=== PATIENT | male | born 1950 | race Caucasian/White ===

== ENCOUNTER 2024-09-29 14:22 | Inpatient (IN) | payer OTHER ==
[2024-09-29 15:30] LABS: HEMATOCRIT 40.1 % (40.1-51.0); HEMOGLOBIN 12.9 g/dL (13.7-17.5); MCHC 32.2 g/dl (32.3-36.5); MEAN CELL VOLUME 66.7 fl (79.0-92.2); MEAN PLT VOLUME 10.6 fl (9.4-12.4); PLATELET COUNT 354 x10^3/uL (163-337); RDW 15.8 % (12.2-16.6)
[2024-09-29] MEDS ORDERED: VANCOMYCIN HCL 1,500 MG in DEXTROSE 5%-WATER - 500 ML IVPB ONE (15:30)
[2024-09-29 15:37] LABS: VENOUS BASE EXCESS -0.5 mmol/L (-2-2); VENOUS PCO2 36.4 mmHg (38-52); VENOUS PH 7.427 (7.310-7.410)
[2024-09-29 15:39] LABS: INR 1.27 (0.83-1.09); PROTHROMBIN TIME (PATIENT) 13.8 SEC (9.7-13.0)
[2024-09-29] MEDS: LACTATED RINGERS SOLUTION 1000 ML INFUS.BAG IV ONE ×2 (15:40→17:03)
[2024-09-29 15:50] LABS: POTASSIUM 4.7 mmol/L (3.5-5.1)
[2024-09-29 15:52] LABS: CALCIUM 10.2 mg/dL (8.5-10.1)
[2024-09-29 15:54] LABS: ALBUMIN 3.3 g/dl (3.4-5.0); BLOOD UREA NITROGEN 34.8 mg/dL (7-18)
[2024-09-29 15:57] LABS: CREATININE 1.1 mg/dL (0.55-1.3)
[2024-09-29 15:58] LABS: TOT PROT 7.5 g/dl (6.4-8.2)
[2024-09-29] MEDS ORDERED: NOREPINEPHRINE BITARTRATE 16,000 MCG in SODIUM CHLORIDE 484 ML IV SCH (16:00)
[2024-09-29] MEDS ORDERED: PIPERACILLIN/TAZOB 4.5 GM 4.5 GM/100 ML BAG IVPB ONE (16:02)
[2024-09-29] MEDS ORDERED: ACETAMINOPHEN INJECTION 100 ML ONE (16:15)
[2024-09-29] MEDS: PIPERACILLIN/TAZOB 4.5 GM 4.5 GM in DEXTROSE 5%-WATER 100 ML IVPB ONE (16:34)
[2024-09-29] MEDS: ACETAMINOPHEN 1000 MG/100 ML BAG IVPB ONE (16:34)
[2024-09-29 16:41] LABS: LACTIC ACID 3.8 mmol/L (0.4-2.0)
[2024-09-29] MEDS ORDERED: AZITHROMYCIN IVPB 500 MG/250 ML BAG IVPB ONE (16:49)
[2024-09-29] MEDS: AZITHROMYCIN IVPB 500 MG in DEXTROSE 5%-WATER - 250 ML IVPB ONE (17:03)
[2024-09-29] MEDS: NOREPINEPHRINE BITARTRATE 4,000 MCG in DEXTROSE 5%-WATER - 496 ML IV SCH (17:27)
[2024-09-29 17:29] LABS: URINE APPEARANCE TURBID; URINE BILIRUBIN SMALL (NEGATIVE); URINE COLOR ORANGE; URINE GLUCOSE (UA) NEGATIVE (NEGATIVE); URINE KETONE NEGATIVE (NEGATIVE); URINE LEUK ESTERASE 4+ (NEGATIVE); URINE NITRITE POSITIVE (NEGATIVE); URINE PROTEIN 300 (NEGATIVE); URINE UROBILINOGEN 0.2 mg/dL (0.2-1.0)
[2024-09-29 17:30] LABS: EPI CELLS 338.5 /uL (0-25.1); HYALINE CASTS 419.4 /uL (0-3.1); URINE RBC 4559.5 /uL (0-23.9)
[2024-09-29] MEDS: VANCOMYCIN HCL IN 5 % DEXTROSE 1,500 MG/300 ML BAG IVPB ONE (18:04)
[2024-09-29 19:05] LABS: LACTIC ACID 4.6 mmol/L (0.4-2.0)
[2024-09-29] MEDS: LACTATED RINGERS SOLUTION 1,000 ML/1,000 ML INFUS.BAG IV STA (21:24)
[2024-09-29] MEDS: HYDROCORTISONE SOD SUCCINATE 100 MG/2 ML VIAL IVPB SCH (21:24)
[2024-09-29] MEDS: ACETAMINOPHEN 1000 MG/100 ML BAG IVPB PRN (21:25)
[2024-09-29] MEDS: NOREPINEPHRINE BITARTRATE/D5W 8 MG/250 ML BAG IVPB SCH (21:26)
[2024-09-29] MEDS: VASopressin 40 UNITS/100 ML BAG IV SCH (21:47)
[2024-09-29] MEDS: MUPIROCIN 2% TOPICAL OINTMENT FOR DECOLONIZATION NS SCH (22:15)
[2024-09-29] MEDS: CHLORHEXIDINE GLUCONATE 4% CLEANSER FOR DECOLONIZATION TP SCH (22:15)
[2024-09-30] MEDS ORDERED: PIPERACILLIN/TAZOB 4.5 GM 4.5 GM in DEXTROSE 5%-WATER 100 ML IVPB SCH
[2024-09-30] MEDS: PIPERACILLIN/TAZOB 4.5 GM 4.5 GM/100 ML BAG IVPB SCH (00:21)
[2024-09-30 07:09] LABS: HEMOGLOBIN 10.5 g/dL (13.7-17.5); MEAN PLT VOLUME 11.2 fl (9.4-12.4)
[2024-09-30 07:11] LABS: HEMATOCRIT 32.2 % (40.1-51.0); MCHC 32.6 g/dl (32.3-36.5); MEAN CELL VOLUME 67.2 fl (79.0-92.2); PLATELET COUNT 256 x10^3/uL (163-337); RDW 15.4 % (12.2-16.6)
[2024-09-30 07:18] LABS: POTASSIUM 3.6 mmol/L (3.5-5.1)
[2024-09-30 07:32] LABS: CALCIUM 9.3 mg/dL (8.5-10.1)
[2024-09-30 07:33] LABS: BLOOD UREA NITROGEN 28.7 mg/dL (7-18)
[2024-09-30 07:36] LABS: CREATININE 0.5 mg/dL (0.55-1.3)
[2024-09-30 07:37] LABS: PHOSPHOROUS 4.2 mg/dL (2.5-4.9)
[2024-09-30 07:41] LABS: ALBUMIN 2.6 g/dl (3.4-5.0); TOT PROT 6.1 g/dl (6.4-8.2)
[2024-09-30] MEDS ORDERED: VANCOMYCIN 750 MG in DEXTROSE 5%-WATER - 150 ML IVPB SCH (08:00)
[2024-09-30] MEDS: VANCOMYCIN/WATER FOR INJ (PEG) 750 MG/150 ML BAG IVPB SCH (08:51)
[2024-09-30] MEDS: levETIRAcetam 500 MG/5 ML INJECTION VIAL IVPB SCH (09:04)
[2024-09-30] MEDS: PANTOPRAZOLE SODIUM 40 MG VIAL IVPUSH SCH (09:07)
[2024-09-30] MEDS: ENOXAPARIN NA (PORCINE) 30 MG/0.3 ML DISP.SYRIN SQ SCH (09:07)
[2024-09-30] MEDS: SODIUM CHLORIDE 1,000 ML IV STA (09:07)
[2024-09-30] MEDS ORDERED: VALPROATE SODIUM 500 MG/5 ML VIAL IVPB SCH (10:00)
[2024-09-30] MEDS: VALPROATE SODIUM INJECTION 125 MG in SODIUM CHLORIDE 100 ML IVPB SCH (10:26)
[2024-09-30] MEDS ORDERED: MIDAZOLAM HCL 2 MG/2 ML SINGLE DOSE VIAL ONE (11:56)
[2024-09-30] MEDS: MIDAZOLAM HCL 2 MG/2 ML SINGLE DOSE VIAL IVPUSH ONE (13:00)
[2024-09-30] MEDS: PIPERACILLIN/TAZOB 3.375 GM 3.375 GM in DEXTROSE 5%-WATER - 50 ML IVPB SCH (17:05)
[2024-09-30] MEDS: OLANZapine 2.5 MG TABLET PO SCH (21:52)
[2024-09-30] MEDS ORDERED: GLYCOPYRROLATE 1 MG TABLET PO SCH (22:00)
[2024-09-30] MEDS: ALBUTEROL SO4 0.083% IH SOL 2.5 MG/3 ML VIAL.NEB. NEB SCH (23:21)
[2024-09-30] MEDS: ACETAMINOPHEN 325 MG TABLET (FP) PO PRN (23:24)
[2024-10-01 06:54] LABS: HEMOGLOBIN 8.6 g/dL (13.7-17.5)
[2024-10-01 06:55] LABS: HEMATOCRIT 27.2 % (40.1-51.0); MCHC 31.6 g/dl (32.3-36.5); MEAN PLT VOLUME 11.4 fl (9.4-12.4); PLATELET COUNT 200 x10^3/uL (163-337); RDW 15.6 % (12.2-16.6)
[2024-10-01 07:21] LABS: POTASSIUM 3.4 mmol/L (3.5-5.1)
[2024-10-01 07:24] LABS: CALCIUM 9.4 mg/dL (8.5-10.1)
[2024-10-01 07:25] LABS: ALBUMIN 2.5 g/dl (3.4-5.0); MAGNESIUM 1.8 mg/dL (1.8-2.4)
[2024-10-01 07:28] LABS: CREATININE 0.4 mg/dL (0.55-1.3)
[2024-10-01 07:29] LABS: BILIRUBIN,TOTAL 0.9 mg/dL (0.2-1); TOT PROT 5.8 g/dl (6.4-8.2)
[2024-10-01] MEDS: POTASSIUM CHLORIDE ORAL LIQUID 20 MEQ/15 ML PO ONE (09:12)
[2024-10-01] MEDS: MAGNESIUM 1GM/D5W - 1 GM/100 ML IVPB IVPB ONE (09:12)
[2024-10-01] MEDS: SENNOSIDES 8.6MG TABLET (FP) PO SCH (09:13)
[2024-10-01] MEDS: NAPH,MB-DB/K PH,MBDB POWDER PACKET PO SCH (09:13)
[2024-10-01] MEDS: ALBUTEROL SO4 0.083% IH SOL 2.5 MG/3 ML VIAL.NEB. NEB SCH (12:00)
[2024-10-02 06:41] LABS: HEMATOCRIT 27.8 % (40.1-51.0); HEMOGLOBIN 8.7 g/dL (13.7-17.5); MCHC 31.3 g/dl (32.3-36.5); MEAN CELL VOLUME 68.3 fl (79.0-92.2); MEAN PLT VOLUME 11.1 fl (9.4-12.4); PLATELET COUNT 190 x10^3/uL (163-337); RDW 15.8 % (12.2-16.6)
[2024-10-02] MEDS: MULTIVIT-MINERALS ORAL LIQUID PO SCH (09:15)
[2024-10-02] MEDS: THIAMINE HCL 200 MG/2 ML VIAL IVPB SCH (09:19)
[2024-10-02 09:42] LABS: CHLORIDE 110 mmol/L (98-107); SODIUM 145 mmol/L (136-145)
[2024-10-02 09:45] LABS: BLOOD UREA NITROGEN 25.9 mg/dL (7-18); CO2 30 mmol/L (21-32); GLUCOSE,RANDOM 86 mg/dL (74-106); MAGNESIUM 1.9 mg/dL (1.8-2.4)
[2024-10-02 09:48] LABS: CREATININE 0.3 mg/dL (0.55-1.3); PHOSPHOROUS 1.5 mg/dL (2.5-4.9); SGOT/AST 37 U/L (15-37); SGPT/ALT 26 U/L (13-61)
[2024-10-02 09:50] LABS: BILIRUBIN,TOTAL 0.7 mg/dL (0.2-1); TOT PROT 5.7 g/dl (6.4-8.2)
[2024-10-02 09:51] LABS: ALK PHOS 67 U/L (45-117)
[2024-10-02 09:53] LABS: ALBUMIN 2.4 g/dl (3.4-5.0); ANION GAP 5 mmol/L (4-13); POTASSIUM 2.9 mmol/L (3.5-5.1)
[2024-10-02] MEDS: KCL 10 MEQ IVPB 10 MEQ/100 ML INFUS.BAG IVPB SCH (11:00)
[2024-10-02] MEDS: POTASSIUM PHOSPHATE IVPB ONE (12:12)
[2024-10-02] MEDS: SODIUM CHLORIDE IVPB ONE (12:12)
[2024-10-02] MEDS: BISACODYL 5 MG TABLET.DR (FP) PO ONE (15:37)
[2024-10-03] MEDS: hydrALAZINE HCL 20 MG/ML VIAL IVPUSH ONE (05:59)
[2024-10-03 07:16] LABS: ABSOLUTE IMMATURE GRANULOCYTES 0.09 x10^3/uL (0.0-0.031); BASOPHILS # 0.01 x10^3/uL (0.01-0.08); EOSINOPHIL % 0.1 % (0.8-7.0); EOSINOPHILS # 0.01 x10^3/uL (0.04-0.54); HEMATOCRIT 28.3 % (40.1-51.0); HEMOGLOBIN 8.7 g/dL (13.7-17.5); MCHC 30.7 g/dl (32.3-36.5); MEAN PLT VOLUME 11.3 fl (9.4-12.4); MONOCYTE % 5.5 % (5.3-12.2); PLATELET COUNT 188 x10^3/uL (163-337); RDW 15.7 % (12.2-16.6)
[2024-10-03 07:31] LABS: POTASSIUM 3.6 mmol/L (3.5-5.1)
[2024-10-03 07:36] LABS: ALBUMIN 2.5 g/dl (3.4-5.0); BLOOD UREA NITROGEN 19.6 mg/dL (7-18); CALCIUM 9.3 mg/dL (8.5-10.1); MAGNESIUM 1.8 mg/dL (1.8-2.4)
[2024-10-03 07:40] LABS: CREATININE 0.3 mg/dL (0.55-1.3)
[2024-10-03 07:41] LABS: BILIRUBIN,TOTAL 0.6 mg/dL (0.2-1)
[2024-10-03] MEDS ORDERED: DEXTROSE 50%-WATER - 25 GM/50 ML VIAL IVPUSH PRN ×2 (08:20→14:05)
[2024-10-03] MEDS: DEXTROSE 5%-0.45% SALINE 1,000 ML IV SCH ×2 (09:07→17:54)
[2024-10-03] MEDS ORDERED: HYDROCORTISONE SOD SUCCINATE 100 MG/2 ML VIAL IVPB SCH (10:00)
[2024-10-03] MEDS ORDERED: ACETAMINOPHEN 325 MG TABLET (FP) PO PRN (14:05)
[2024-10-03] MEDS: VALPROATE SODIUM INJECTION 125 MG in SODIUM CHLORIDE 100 ML IVPB SCH (15:40)
[2024-10-03 15:51] VITALS: BMI 15.3
[2024-10-03] MEDS: ALBUTEROL SO4 0.083% IH SOL 2.5 MG/3 ML VIAL.NEB. NEB SCH (16:00)
[2024-10-03] MEDS: PIPERACILLIN/TAZOB 3.375 GM 3.375 GM in DEXTROSE 5%-WATER - 50 ML IVPB SCH (17:54)
[2024-10-03] MEDS: levETIRAcetam 500 MG/5 ML INJECTION VIAL IVPB SCH (21:14)
[2024-10-03] MEDS ORDERED: MUPIROCIN 2% TOPICAL OINTMENT FOR DECOLONIZATION NS SCH (22:00)
[2024-10-03] MEDS ORDERED: CHLORHEXIDINE GLUCONATE 4% CLEANSER FOR DECOLONIZATION TP SCH (22:00)
[2024-10-03] MEDS ORDERED: DEXTROSE 50%-WATER 25 GM/50 ML DISP.SYRIN IVPUSH PRN (23:58)
[2024-10-04] MEDS: OLANZapine 2.5 MG TABLET PO SCH (01:27)
[2024-10-04 07:03] LABS: ABSOLUTE IMMATURE GRANULOCYTES 0.04 x10^3/uL (0.0-0.031); BASOPHILS # 0.01 x10^3/uL (0.01-0.08); EOSINOPHIL % 0.5 % (0.8-7.0); EOSINOPHILS # 0.04 x10^3/uL (0.04-0.54); HEMATOCRIT 28.6 % (40.1-51.0); MCHC 31.5 g/dl (32.3-36.5); MEAN CELL VOLUME 67.5 fl (79.0-92.2); MONOCYTE # 0.69 x10^3/uL (0.30-0.82); MONOCYTE % 7.9 % (5.3-12.2); PLATELET COUNT 200 x10^3/uL (163-337); RDW 15.4 % (12.2-16.6)
[2024-10-04 07:23] LABS: POTASSIUM 3.3 mmol/L (3.5-5.1)
[2024-10-04 07:25] LABS: ALBUMIN 2.4 g/dl (3.4-5.0); BLOOD UREA NITROGEN 11.6 mg/dL (7-18); CALCIUM 9.2 mg/dL (8.5-10.1); MAGNESIUM 1.6 mg/dL (1.8-2.4)
[2024-10-04 07:28] LABS: CREATININE 0.2 mg/dL (0.55-1.3)
[2024-10-04 07:30] LABS: BILIRUBIN,TOTAL 0.8 mg/dL (0.2-1); TOT PROT 5.7 g/dl (6.4-8.2)
[2024-10-04] MEDS: PANTOPRAZOLE SODIUM 40 MG VIAL IVPUSH SCH (09:49)
[2024-10-04] MEDS: ENOXAPARIN NA (PORCINE) 30 MG/0.3 ML DISP.SYRIN SQ SCH (09:49)
[2024-10-04] MEDS: THIAMINE HCL 200 MG/2 ML VIAL IVPB SCH (09:50)
[2024-10-04] MEDS: SENNOSIDES 8.6MG TABLET (FP) PO SCH (09:50)
[2024-10-04] MEDS: MULTIVIT-MINERALS ORAL LIQUID PO SCH (12:51)
[2024-10-04] MEDS: KCL 10 MEQ IVPB 10 MEQ/100 ML INFUS.BAG IVPB SCH (15:44)
[2024-10-05 07:39] LABS: BASOPHILS # 0.01 x10^3/uL (0.01-0.08); EOSINOPHIL % 1.5 % (0.8-7.0); EOSINOPHILS # 0.12 x10^3/uL (0.04-0.54); HEMATOCRIT 25.7 % (40.1-51.0); HEMOGLOBIN 8.4 g/dL (13.7-17.5); MCHC 32.7 g/dl (32.3-36.5); MEAN CELL VOLUME 67.5 fl (79.0-92.2); MEAN PLT VOLUME 10.7 fl (9.4-12.4); MONOCYTE # 0.69 x10^3/uL (0.30-0.82); MONOCYTE % 8.4 % (5.3-12.2); PLATELET COUNT 210 x10^3/uL (163-337); RDW 15.3 % (12.2-16.6)
[2024-10-05 07:40] LABS: CHLORIDE 102 mmol/L (98-107); POTASSIUM 3.1 mmol/L (3.5-5.1); SODIUM 137 mmol/L (136-145)
[2024-10-05 07:46] LABS: ANION GAP 6 mmol/L (4-13); CO2 29 mmol/L (21-32)
[2024-10-05 07:47] LABS: CALCIUM 8.1 mg/dL (8.5-10.1); MAGNESIUM 1.3 mg/dL (1.8-2.4)
[2024-10-05 07:49] LABS: CREATININE 0.4 mg/dL (0.55-1.3); SGOT/AST 14 U/L (15-37); SGPT/ALT 18 U/L (13-61)
[2024-10-05 07:50] LABS: PHOSPHOROUS 2.4 mg/dL (2.5-4.9)
[2024-10-05 07:51] LABS: BILIRUBIN,TOTAL 0.6 mg/dL (0.2-1)
[2024-10-05 07:52] LABS: ALK PHOS 54 U/L (45-117)
[2024-10-05 07:53] LABS: GLUCOSE,RANDOM 560 mg/dL (74-106)
[2024-10-05] MEDS ORDERED: DEXTROSE 50%-WATER 25 GM/50 ML DISP.SYRIN IVPUSH PRN (08:43)
[2024-10-05] MEDS: POTASSIUM CHLORIDE ORAL LIQUID 20 MEQ/15 ML PO ONE (11:12)
[2024-10-05] MEDS ORDERED: ACETAMINOPHEN 325 MG TABLET (FP) PO PRN (21:12)
[2024-10-05] MEDS ORDERED: DEXTROSE 50%-WATER - 25 GM/50 ML VIAL IVPUSH PRN (21:12)
[2024-10-05] MEDS: VALPROATE SODIUM 250 MG/5 ML UNIT DOSE CUP PO SCH (21:47)
[2024-10-05] MEDS: OLANZapine 2.5 MG TABLET PO SCH (21:47)
[2024-10-05] MEDS: DEXTROSE 5%-0.45% SALINE 1,000 ML IV SCH (21:48)
[2024-10-06] MEDS: PIPERACILLIN/TAZOB 3.375 GM 3.375 GM in DEXTROSE 5%-WATER - 50 ML IVPB SCH (01:59)
[2024-10-06] MEDS: ALBUTEROL SO4 0.083% IH SOL 2.5 MG/3 ML VIAL.NEB. NEB SCH (07:35)
[2024-10-06 09:05] LABS: POTASSIUM 3.1 mmol/L (3.5-5.1)
[2024-10-06 09:06] LABS: BLOOD UREA NITROGEN 5.9 mg/dL (7-18)
[2024-10-06 09:07] LABS: MAGNESIUM 1.8 mg/dL (1.8-2.4)
[2024-10-06 09:08] LABS: ALBUMIN 2.4 g/dl (3.4-5.0)
[2024-10-06 09:10] LABS: PHOSPHOROUS 3.1 mg/dL (2.5-4.9)
[2024-10-06 09:11] LABS: BILIRUBIN,TOTAL 0.7 mg/dL (0.2-1)
[2024-10-06 09:12] LABS: CREATININE 0.2 mg/dL (0.55-1.3); TOT PROT 5.8 g/dl (6.4-8.2)
[2024-10-06] MEDS: PANTOPRAZOLE SODIUM 40 MG VIAL IVPUSH SCH (09:57)
[2024-10-06] MEDS: MULTIVIT-MINERALS ORAL LIQUID PO SCH (09:57)
[2024-10-06] MEDS: THIAMINE HCL 200 MG/2 ML VIAL IVPB SCH (09:57)
[2024-10-06] MEDS: SENNOSIDES 8.6MG TABLET (FP) PO SCH (09:57)
[2024-10-06] MEDS: levETIRAcetam 500 MG TABLET (FP) PO SCH (09:58)
[2024-10-06] MEDS: ENOXAPARIN NA (PORCINE) 30 MG/0.3 ML DISP.SYRIN SQ SCH (10:15)
[2024-10-06 13:43] LABS: ARTERIAL BLD GAS O2 SATURATION 94.3 % (95-98); ARTERIAL BLOOD GAS BASE EXCESS 4.4 mmol/L (-2-2); ARTERIAL BLOOD GAS pH 7.462 (7.350-7.450)
[2024-10-06 13:44] LABS: ALLENS TEST POSITIVE
[2024-10-06] MEDS: POTASSIUM CHLORIDE ORAL LIQUID 20 MEQ/15 ML PO ONE (14:07)
[2024-10-06] MEDS: CEFTRIAXONE 2 GM-D5W BAG 2 GM/50 ML BAG IVPB SCH (14:07)
[2024-10-06] MEDS: MAGNESIUM SULF 50% (8.12 MEQ/2 ML-1 GM VIAL) IVPB ONE (16:13)
[2024-10-06] MEDS: NAPH,MB-DB/K PH,MBDB POWDER PACKET PO ONE (16:13)
[2024-10-07] MEDS ORDERED: DEXTROSE 50%-WATER 25 GM/50 ML DISP.SYRIN IVPUSH PRN (00:09)
[2024-10-07 09:43] LABS: POTASSIUM 3.9 mmol/L (3.5-5.1)
[2024-10-07 09:46] LABS: BLOOD UREA NITROGEN 7.1 mg/dL (7-18); CALCIUM 8.9 mg/dL (8.5-10.1); MAGNESIUM 2.2 mg/dL (1.8-2.4)
[2024-10-07 09:49] LABS: CREATININE 0.3 mg/dL (0.55-1.3); PHOSPHOROUS 2.8 mg/dL (2.5-4.9)
[2024-10-08 06:33] VITALS: TEMP 97.7
[2024-10-08 09:28] LABS: HEMATOCRIT 33.7 % (40.1-51.0); MCHC 29.7 g/dl (32.3-36.5); MEAN CELL VOLUME 70.5 fl (79.0-92.2); MEAN PLT VOLUME 11.4 fl (9.4-12.4); PLATELET COUNT 290 x10^3/uL (163-337); RDW 16.1 % (12.2-16.6)
[2024-10-08 09:48] LABS: POTASSIUM 4.3 mmol/L (3.5-5.1)
[2024-10-08 10:09] LABS: BLOOD UREA NITROGEN 8.4 mg/dL (7-18); CREATININE 0.3 mg/dL (0.55-1.3)
[2024-10-08 15:19] VITALS: BP 127/72; PULSE 73
[2024-10-08 16:27] VITALS: RESP 18
== END 2024-10-08 16:40 | DRG 871 ==
LOC: JER 14:22 → JERBED 18:01 → JICU 20:02 → J4W 10-03 12:31 → J5S 10-05 21:11
PROVIDERS: ADMIT Internal Medicine Pulmonary Disease; ATTEND Student in an Organized Health Care Education/Training Program
PROC: 06HM33Z Insertion of Infusion Device into Right Femoral Vein, Percutaneous Approach (ICD-10-PCS; principal; 2024-09-30)
DX: A41.50 Gram-negative sepsis, unspecified (principal); E43 Unspecified severe protein-calorie malnutrition; J96.21 Acute and chronic respiratory failure with hypoxia; R65.21 Severe sepsis with septic shock; E87.20 Acidosis, unspecified; R64 Cachexia; N39.0 Urinary tract infection, site not specified; Z68.1 Body mass index [BMI] 19.9 or less, adult; F03.90 Unspecified dementia, unspecified severity, without behavioral disturbance, psychotic disturbance, mood disturbance, and anxiety; J44.9 Chronic obstructive pulmonary disease, unspecified; D50.9 Iron deficiency anemia, unspecified; D64.9 Anemia, unspecified; E16.2 Hypoglycemia, unspecified; E87.6 Hypokalemia; R33.8 Other retention of urine; N31.9 Neuromuscular dysfunction of bladder, unspecified; G40.909 Epilepsy, unspecified, not intractable, without status epilepticus
CPT/HCPCS: 0241U-QW; 36415; 36600; 70450-TC; 71045-TC-FY; 76775-TC; 80048; 80053; 81003; 82308; 82533; 82610; 82803; 82962; 83525; 83605; 83735; 84100; 84484; 85025; 85027; 85610; 85730; 86140; 86713; 86850; 86900; 86901; 87040; 87070; 87086; 87205; 87481; 87899; 93005; 93010; 94640; 99291; J3490